=== PATIENT | female | born 1945 | race Caucasian/White ===

== ENCOUNTER 2017-08-16 03:37 | Emergency (ER) | payer OTHER ==
[2017-08-16 03:42] VITALS: RESP 18; TEMP 98.4
[2017-08-16] MEDS ORDERED: ONDANSETRON 4 MG/2 ML VIAL IVP ONE ×2 (03:56→04:21)
[2017-08-16] MEDS ORDERED: NS 1,000 ML IV ONE (03:56)
--- NOTE | 2017-08-16 03:57 | EDPHY ---
H & P Stated Complaint: RLQ ABD PAIN STARTING 0200 Time Seen by Provider: 08/16/17 03:46 HPI/ROS: Chief Complaint: Abdominal pain HPI: 71-year-old woman woke at 2 o'clock this morning with right lower quadrant abdominal pain which has persisted. Is about a 6 to 7/10. She has some nausea but no vomiting. No constipation. No fevers or chills. She was diagnosed with a DVT on the 28 of July and has been taking Coumadin. Last INR was Thursday and was a little over 3. She has been having blood in her urine for the last week which is attributed to her high INR but she has not had any blood today. No fevers or chills. No urinary urgency or frequency. No history of kidney stones in the past. She states that the DVT was unprovoked in a have not identified a cause for her blood clot. No history abdominal surgeries. ROS: 10 point Review of Systems is negative except as noted in the HPI. PMH: DVT Social History: No smoking, occasional alcohol, rare marijuana Family History: non-contributory Physical Exam: Gen: Awake, Alert, No Distress HEENT: Nose: no rhinorrhea Eyes: PERRLA, EOMI Mouth: Moist mucosa Neck: Supple, no JVD Chest: nontender, lungs clear to auscultation Heart: S1, S2 normal, no murmur Abd: Soft, moderate right lower quadrant tenderness, no guarding Back: no CVA tenderness, no midline tenderness Ext: no edema, non-tender Skin: no rash Neuro: CN II-XII intact, Sensation grossly intact, Strength 5/5 in bilateral upper and lower extremities - Personal History Current Tetanus/Diphtheria Vaccine: Yes Current Tetanus Diphtheria and Acellular Pertussis (TDAP): Yes - Medical/Surgical History Hx Asthma: No Hx Chronic Respiratory Disease: No Hx Diabetes: No Hx Cardiac Disease: No Hx Renal Disease: No Hx Cirrhosis: No Hx Alcoholism: No Hx HIV/AIDS: No Hx Splenectomy or Spleen Trauma: No Other PMH: DVT RT LEG 08/16 - Social History Smoking Status: Never smoked Constitutional: Initial Vital Signs Temperature (C) 36.9 C 08/16/17 03:38 Heart Rate 58 L 08/16/17 03:38 Respiratory Rate 18 08/16/17 03:38 Blood Pressure 126/84 H 08/16/17 03:38 O2 Sat (%) 100 08/16/17 03:38 O2 Delivery Mode Room Air Allergies/Adverse Reactions: indomethacin Allergy (Verified 03/19/16 10:17) Home Medications: Medication Instructions Recorded Tamsulosin HCl 0.4 mg PO DAILY #10 cap 08/16/17 Warfarin Sodium 2.5 mg 08/16/17 oxyCODONE/APAP 5/325 [Percocet 1 - 2 tab PO Q4H PRN #10 tab 08/16/17 5/325 (*)] Medical Decision Making - Diagnostics Imaging Results: CT scan reveals a 3 mm distal right ureteral stone with moderate hydronephrosis per Dr. Hightower. Imaging: Discussed imaging studies w/ call box wirer Radiologist - Data Points Laboratory Results: Laboratory Results 08/16/17 04:10 08/16/17 04:10 08/16/17 08/16/17 08/16/17 04:10 04:10 04:10 WBC 7.92 10^3/uL 10^3/uL (3.80-9.50) RBC 4.45 10^6/uL 10^6/uL (4.18-5.33) Hgb 13.9 g/dL g/dL (12.6-16.3) Hct 40.8 % % (38.0-47.0) MCV 91.7 fL fL (81.5-99.8) MCH 31.2 pg pg (27.9-34.1) MCHC 34.1 g/dL g/dL (32.4-36.7) RDW 12.8 % % (11.5-15.2) Plt Count 207 10^3/uL 10^3/uL (150-400) MPV 9.5 fL fL (8.7-11.7) Neut % (Auto) 69.1 % % (39.3-74.2) Lymph % (Auto) 22.0 % % (15.0-45.0) Pepin % (Auto) 5.8 % % (4.5-13.0) Eos % (Auto) 2.1 % % (0.6-7.6) Baso % (Auto) 0.4 % % (0.3-1.7) Nucleat RBC Rel Count 0.0 % % (0.0-0.2) Absolute Neuts (auto) 5.47 10^3/uL 10^3/uL (1.70-6.50) Absolute Lymphs (auto) 1.74 10^3/uL 10^3/uL (1.00-3.00) Absolute Monos (auto) 0.46 10^3/uL 10^3/uL (0.30-0.80) Absolute Eos (auto) 0.17 10^3/uL 10^3/uL (0.03-0.40) Absolute Basos (auto) 0.03 10^3/uL 10^3/uL (0.02-0.10) Absolute Nucleated RBC 0.00 10^3/uL 10^3/uL (0-0.01) Immature Gran % 0.6 % % (0.0-1.1) Immature Gran # 0.05 10^3/uL 10^3/uL (0.00-0.10) PT 32.3 SEC H SEC (12.0-15.0) INR 3.17 H (0.83-1.16) APTT 50.3 SEC H SEC (23.0-38.0) Sodium 140 mEq/L mEq/L (135-145) Potassium 4.0 mEq/L mEq/L (3.5-5.2) Chloride 104 mEq/L mEq/L (97-110) Carbon Dioxide 25 mEq/l mEq/l (22-31) Anion Gap 11 mEq/L mEq/L (8-16) BUN 17 mg/dL mg/dL (7-23) Creatinine 0.9 mg/dL mg/dL (0.6-1.0) Estimated GFR > 60 Glucose 134 mg/dL H mg/dL (70-100) Calcium 8.9 mg/dL mg/dL (8.5-10.4) Total Bilirubin 0.4 mg/dL mg/dL (0.1-1.4) AST 34 IU/L IU/L (14-46) ALT 45 IU/L IU/L (9-52) Alkaline Phosphatase 71 IU/L IU/L (38-126) Total Protein 6.6 g/dL g/dL (6.3-8.2) Albumin 3.9 g/dL g/dL (3.5-5.0) Lipase 169 IU/L IU/L (23-300) Urine Color Urine Appearance Urine pH Ur Specific [place] Urine Protein Urine Ketones Urine Blood Urine Nitrate Urine Bilirubin Urine Urobilinogen Ur Leukocyte Esterase Urine RBC Urine WBC Ur Epithelial Cells Urine Bacteria Urine Mucus Urine Glucose 08/16/17 04:00 WBC RBC Hgb Hct MCV MCH MCHC RDW Plt Count MPV Neut % (Auto) Lymph % (Auto) Pepin % (Auto) Eos % (Auto) Baso % (Auto) Nucleat RBC Rel Count Absolute Neuts (auto) Absolute Lymphs (auto) Absolute Monos (auto) Absolute Eos (auto) Absolute Basos (auto) Absolute Nucleated RBC Immature Gran % Immature Gran # PT INR APTT Sodium Potassium Chloride Carbon Dioxide Anion Gap BUN Creatinine Estimated GFR Glucose Calcium Total Bilirubin AST ALT Alkaline Phosphatase Total Protein Albumin Lipase Urine Color YELLOW Urine Appearance HAZY Urine pH 6.0 (5.0-7.5) Ur Specific [place] 1.014 (1.002-1.030) Urine Protein 1+ H (NEGATIVE) Urine Ketones NEGATIVE (NEGATIVE) Urine Blood 3+ H (NEGATIVE) Urine Nitrate NEGATIVE (NEGATIVE) Urine Bilirubin NEGATIVE (NEGATIVE) Urine Urobilinogen NEGATIVE EU EU (0.2-1.0) Ur Leukocyte Esterase NEGATIVE (NEGATIVE) Urine RBC 50-182 /hpf H /hpf (0-3) Urine WBC 1-3 /hpf /hpf (0-3) Ur Epithelial Cells NONE SEEN /lpf /lpf (NONE-1+) Urine Bacteria TRACE /hpf H /hpf (NONE SEEN) Urine Mucus TRACE /lpf /lpf (NONE-1+) Urine Glucose NEGATIVE (NEGATIVE) Medications Given: Discontinued Medications Hydromorphone HCl (Dilaudid) 0.5 mg IVP EDNOW ONE Stop: 08/16/17 04:22 Last Admin: 08/16/17 04:22 Dose: 0.5 mg Sodium Chloride (Ns) 1,000 mls @ 0 mls/hr IV ONCE ONE; Wide Open PRN Reason: Protocol Stop: 08/16/17 03:57 Last Admin: 08/16/17 04:15 Dose: 1,000 mls Ketorolac Tromethamine (Toradol) 15 mg IVP ONCE ONE Stop: 08/16/17 04:49 Last Admin: 08/16/17 04:49 Dose: 15 mg Morphine Sulfate (Morphine) 4 mg IVP ONCE ONE Stop: 08/16/17 03:57 Last Admin: 08/16/17 04:15 Dose: 4 mg Ondansetron HCl (Zofran) 4 mg IVP EDNOW ONE Stop: 08/16/17 03:57 Last Admin: 08/16/17 04:15 Dose: 4 mg Ondansetron HCl (Zofran) 4 mg IVP EDNOW ONE Stop: 08/16/17 04:22 Last Admin: 08/16/17 04:22 Dose: 4 mg Departure - Departure Disposition: Home, Routine, Self-Care Clinical Impression: Kidney stone Condition: Good Instructions: Kidney Stones (ED) Additional Instructions: You may take oxycodone with acetaminophen as needed for pain. Take tamsulosin to help facilitate passage of the stone. Strain your urine intake the stone to your urology appointment for analysis. Follow up with your physician at [facility] for referral to a urologist. Return to the emergency department for increasing pain, fevers, chills, uncontrolled bleeding, nausea, vomiting, or any other concerns. Referrals: SOFI GIBSON [Other] - As per Instructions Prescriptions: oxyCODONE/APAP 5/325 [Percocet 5/325 (*)] 1 - 2 tab PO Q4H PRN #10 tab PRN Reason: Pain, Severe Tamsulosin HCl 0.4 mg PO DAILY #10 cap
[2017-08-16] MEDS ORDERED: IOPAMIDOL (ISOVUE-300) 100 ML BTL ONE (04:12)
[2017-08-16] MEDS ORDERED: ONDANSETRON 4 MG/2 ML VIAL ONE (04:19)
[2017-08-16] MEDS ORDERED: HYDROmorphONE/DILAUDID 1 MG/ML INJ ONE (04:20)
[2017-08-16] MEDS ORDERED: HYDROmorphONE/DILAUDID 1 MG/ML INJ IVP ONE (04:21)
[2017-08-16 04:26] LABS: PLATELET COUNT 207 10^3/uL (150-400)
[2017-08-16] MEDS ORDERED: KETOROLAC 15 MG/1 ML SDV ONE (04:46)
[2017-08-16] MEDS ORDERED: KETOROLAC 15 MG/1 ML SDV IVP ONE (04:48)
[2017-08-16 05:14] LABS: INR 3.17 (0.83-1.16); PROTIME(PATIENT) 32.3 SEC (12.0-15.0)
[2017-08-16 05:49] VITALS: BP 120/73; PULSE 64; O2SAT 95
== END 2017-08-16 06:28 | disposition home or self-care (01) ==
DX: N20.0 Calculus of kidney (principal); E86.9 Volume depletion, unspecified; Z79.01 Long term (current) use of anticoagulants
CPT/HCPCS: 74176; 96361; 96374; 96375; 99285; J1170; J1885; J2270; J2405; Q9967